=== PATIENT | male | born 1965 | race Caucasian/White ===

== ENCOUNTER → 2024-07-22 06:38 | Outpatient (REF) | payer OTHER, SELFPAY | LOC: RCS 06:38 | PROVIDERS: ATTENDING PHYSICIAN Internal Medicine Cardiovascular Disease; FAMILY PHYSICIAN Family Medicine | DX: I10 Essential (primary) hypertension (principal); R01.1 Cardiac murmur, unspecified | CPT/HCPCS: 93306 ==

== ENCOUNTER 2024-08-15 14:52 | Emergency (ER) | payer OTHER, SELFPAY ==
[2024-08-15 15:08] VITALS: BP 114/64
--- NOTE | 2024-08-15 15:20 | ED.GENMED ---
History of Present Illness
General
Chief Complaint: Crisis Evaluation
Source: patient
Exam Limitations: none
Time Seen by Provider: 08/15/24 15:21
History of Present Illness
History of Present Illness:
59yoM presenting for a psychiatric evaluation. Patient had a work injury about 2 months ago and has been out of work since then. He reports having cabin fever and has had increasing anxiety due to this. Patient is here requesting outpatient
resources. He is interested in participating in a group or therapy. He denies any depression. No suicidal or homicidal ideations. He has never seen a psychiatrist previously and has never been on any psychiatric medications.
Past History
Past History
ED Past Medical History: CVA and HTN
Social History
Tobacco: Smoker
Alcohol: Occasional
Drug: None
Employment: Employed
Phy Exam
General Physical Exam
General Presentation: well appearing and no apparent distress
General age: appears stated age
General Skin: warm and dry
General Habitus: normal
General Mental: alert
ENT Exam
ENT Exam: normocephalic
Pulmonary Exam
Pulmonary Exam: no respiratory distress
Neurological Exam
Neurological Exam: alert
Loni Coma Scale
Eye Opening: Spontaneous
Verbal Response: Oriented
Motor Response: Obeys Commands
GCS Total Score: 15
Skin Exam
Skin Exam: normal color and warm/dry
Psychiatric Exam
Psychiatric Exam: normal mood/affect and other (Maintains good eye contact. No SI/HI. No signs of psychosis.)
Course
Orders/Labs/Results
Orders:
Orders
08/15/24 15:27
Crisis Consult Urgent
Reason for Consult: eval
Vital Signs
Initial and Last Documented VS:
Initial Vital Signs
Temp Pulse Resp BP Pulse Ox
98.0 F 62 20 114/64 97
08/15/24 15:08 08/15/24 15:08 08/15/24 15:08 08/15/24 15:08 08/15/24 15:08
Last Documented Vital Signs
Temp Pulse Resp BP Pulse Ox
98.0 F 62 20 114/64 97
08/15/24 15:08 08/15/24 15:08 08/15/24 15:08 08/15/24 15:08 08/15/24 15:08
MDM/Problems Addressed
Differential Diagnosis Includes:
59yoM here for psychiatric evaluation. Increasing anxiety x 2 months since being out of work. No depression. No SI/HI. Here requesting outpatient resources. Vital signs stable. No medical complaints. No signs of psychosis on exam. Patient
medically cleared for crisis evaluation.
*Critical Care Note
Total Time (30-74mins, 75-104mins- exclusive of procedures): Not Applicable
Update Note
Update Note:
Patient seen by crisis and outpatient resources provided. Patient not interested in inpatient treatment currently and there are no grounds for 302. ED return precautions discussed. He was discharged stable condition.
ED Attending Note
-
Portions of this chart may have been created with voice recognition software.� Occasional wrong word or��sound alike� substitutions may have occurred due to the inherent limitations of voice recognition software.
Discharge Plan
Departure
Patient Disposition: Home (Routine Discharge)
Date of Disposition: 08/15/24
Time of Disposition: 15:30
Patient with high blood pressure during this ER visit?: No
Discharge Problem:
Encounter for psychiatric assessment
Prescriptions:
No Action
atorvastatin 40 MG tablet
80 mg PO DAILY
lisinopril 20 MG tablet
20 mg PO DAILY
amoxicillin 250 MG tablet,chewable
250 mg PO TID
aspirin [Ziyad Chewable Aspirin] 81 MG tablet,chewable
81 mg PO DAILY
Activity Restrictions/Additional Instructions:
Please follow-up with the outpatient mental health resources provided. Return to the ER with any worsening symptoms or suicidal thoughts.
Interventions
Interventions:
*Risk Screen - Suicide Last Done: 08/15/24 14:57
*General Assessment Last Done: 08/15/24 15:07
*Neglect/Abuse Screening Last Done: 08/15/24 15:07
ED- Fall Risk Assessment Last Done: 08/15/24 16:04
*ED COVID-19 Vaccine History Last Done: 08/15/24 15:07
*Nursing Disposition Last Done: 08/15/24 16:05
ED-Psychological Assessment Last Done: 08/15/24 16:04
Discharge Date and Time
Discharge Date/Time: 08/15/24 16:05
Print Language: [email or web address]
== END 2024-08-15 16:05 | disposition home or self-care (01) ==
LOC: EMR 14:52
PROVIDERS: EMERGENCY PHYSICIAN Emergency Medicine
DX: Z00.8 Encounter for other general examination (principal); I10 Essential (primary) hypertension; Z86.73 Personal history of transient ischemic attack (TIA), and cerebral infarction without residual deficits; F17.200 Nicotine dependence, unspecified, uncomplicated
CPT/HCPCS: 99283

== ENCOUNTER 2024-11-15 06:17 | Day surgery (SDC) | payer OTHER, SELFPAY | END 2024-11-15 14:54 | disposition home or self-care (01) | LOC: GI 06:17 | PROVIDERS: ATTENDING PHYSICIAN Specialist | DX: Z12.11 Encounter for screening for malignant neoplasm of colon (principal); K57.30 Diverticulosis of large intestine without perforation or abscess without bleeding; K62.1 Rectal polyp; Z86.0101 Personal history of adenomatous and serrated colon polyps | CPT/HCPCS: 45385; 88305 ==

== ENCOUNTER → 2025-05-05 14:08 | Outpatient (REF) | payer OTHER, SELFPAY | LOC: RAD 14:08 | PROVIDERS: ATTENDING PHYSICIAN Family Medicine; REFERRING PHYSICIAN Orthopaedic Surgery Hand Surgery | DX: Z87.891 Personal history of nicotine dependence (principal); M24.452 Recurrent dislocation, left hip; M25.522 Pain in left elbow; M20.11 Hallux valgus (acquired), right foot | CPT/HCPCS: 73080; 73522; 73630 ==

== ENCOUNTER → 2025-05-16 08:51 | Outpatient (REF) | payer OTHER, SELFPAY | LOC: RAD 08:51 | PROVIDERS: ATTENDING PHYSICIAN Family Medicine | DX: Z87.891 Personal history of nicotine dependence (principal); M24.452 Recurrent dislocation, left hip; M25.522 Pain in left elbow | CPT/HCPCS: 71271 ==

== ENCOUNTER → 2025-06-13 07:31 | Outpatient (REF) | payer OTHER, SELFPAY | LOC: MRI 07:31 | PROVIDERS: ATTENDING PHYSICIAN Orthopaedic Surgery Hand Surgery; FAMILY PHYSICIAN Family Medicine | DX: M19.022 Primary osteoarthritis, left elbow (principal); M24.022 Loose body in left elbow | CPT/HCPCS: 73221 ==